=== PATIENT | male | born 1965 | race Caucasian/White ===

== ENCOUNTER 2017-11-02 15:09 | Emergency (ER) | payer SELFPAY ==
[~2017-11-02] VITALS: Ht 172.7 cm; Wt 72.6 kg
[2017-11-02 15:13] VITALS: BP 154/99
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
--- NOTE | 2017-11-02 15:28 | NUR ---
Patient being evaluated by physician at bedside.
[2017-11-02] MEDS ORDERED: IBUPROFEN 800 MG TAB PO ONE (15:30)
--- NOTE | 2017-11-02 16:12 | NUR ---
PT IS NOT ABLE TO URINATE AT THIS TIME, ED MD MADE AWARE.
[2017-11-02 16:15] VITALS: BP 148/89
--- NOTE | 2017-11-02 16:15 | NUR ---
Patient discharged with v/s stable. Written and verbal after care instructions given and explained. Patient alert, oriented and verbalized understanding of instructions. Ambulatory with steady gait. All questions addressed prior to discharge. ID band removed. Patient advised to follow up with PMD. Rx of DICLOFENAC, NORCO given. Patient educated on indication of medication including possible reaction and side effects. Opportunity to ask questions provided and answered.
== END 2017-11-02 16:15 | disposition home or self-care (01) ==
LOC: MED 15:09
DX: S22.31XA Fracture of one rib, right side, initial encounter for closed fracture (principal); Z88.0 Allergy status to penicillin; W50.1XXA Accidental kick by another person, initial encounter; Y93.89 Activity, other specified; Y92.89 Other specified places as the place of occurrence of the external cause; Y99.8 Other external cause status
CPT/HCPCS: 71101; 99284